=== PATIENT | male | born 1975 | race African-American/Black ===

== ENCOUNTER 2017-06-13 02:39 | Emergency (ER) | payer MEDICARE ==
[2017-06-13] MEDS: IBUPROFEN 600 MG TABLET. PO (04:56)
[2017-06-13] MEDS: ACETAMINOPHEN 325 MG TABLET. PO (04:56)
== END 2017-06-13 05:13 | disposition home or self-care (01) ==
LOC: ER 02:39
DX: K64.5 Perianal venous thrombosis (principal)
CPT/HCPCS: 99283